=== PATIENT | male | born 1975 | race African-American/Black ===

== ENCOUNTER 2020-08-24 13:41 | Outpatient (CLI) | payer BC, SELFPAY ==
--- NOTE | ~2020-08-24 | XR_ITS ---
EXAMINATION: XR chest 2V EXAM DATE: 08/24/2020 14:06 INDICATION: Cough for one week. Fatigue. TECHNIQUE: Frontal and lateral projections of the chest obtained and reviewed. There is no prior petr dy for comparison. FINDINGS: Some ill-defined right upper lobe opacities which could be acute airspace disease, possible acute infectious process. Right lower lung zone and left lung are clear. No pneumothorax or pleural effusion. There are no osseous abnormalities identified. Cardiomediastinal silhouette is normal. IMPRESSION: Probable small amount of right upper lobe acute airspace disease. I discussed this case with RICK Mendez at 08/24/2020 14:18 CDT. Reviewed, dictated and finalized at location B.
[2020-08-24 14:40] LABS: Basophils Percent Auto 0.5 % (0.2-1.2); Eosinophils Percent Auto 0.5 % (0-4.4); Hematocrit 47.4 % (42.0-52.0); Hemoglobin 16.3 g/dL (14.0-18.0); Immature Granulocyte Absolute 0.01 K/mm3 (0.00-0.031); Immature Granulocyte Percent A 0.2 % (0-0.5); Lymphocytes Absolute Auto 1.78 K/mm3 (0.9-3.2); Lymphocytes Percent Auto 29.7 % (18.3-44.2); Mean Corpuscular HGB Conc 34.4 g/dl (32-36); Mean Corpuscular Hemoglobin 29.9 pg (26-34); Mean Corpuscular Volume 86.8 fl (80-100); Mean Platelet Volume 10.2 fl (7.4-10.4); Monocytes Absolute Auto 0.6 K/mm3 (0.1-0.6); Monocytes Percent Auto 9.5 % (2.6-8.5); Neutrophils Absolute Auto 3.6 K/mm3 (1.3-6.7); Neutrophils Percent Auto 59.6 % (45.5-73.1); Platelet Count Result 209 k/mm3 (150-375); Red Blood Count 5.46 M/mm3 (4.6-6.20)
[2020-08-24 14:51] LABS: Anion Gap 9 mmol/L (8-16); Blood Urea Nitrogen 9 mg/dL (9-20); Calcium 9.7 mg/dL (8.4-10.2); Carbon Dioxide 28 mmol/L (22-30); Chloride 101 mmol/L (98-107); Estimated Glomerular Filt Rate > 60; Glucose 119 mg/dL (75-110); Sodium 138 mmol/L (137-145)
== END 2020-08-24 13:42 | disposition home or self-care (01) ==
LOC: ANHIMG 13:47
PROVIDERS: PCP Family Medicine; Visit Provider Nurse Practitioner Family
DX: R53.83 Other fatigue (principal); R05 Cough
CPT/HCPCS: 36415; 71046; 80048; 85025

== ENCOUNTER 2023-10-14 02:41 | Day surgery (SDC) | payer BC, SELFPAY ==
[2023-10-07 13:08] VITALS: BMI 27.0
--- NOTE | 2023-10-13 09:27 | SUR.PREOP ---
Patient called regarding upcoming procedure. Reviewed preop instructions, appointment times, and procedure prep.
[2023-10-14 12:42] VITALS: BP 121/89; PULSE 67; RESP 18; TEMP 36.2; O2SAT 100; BMI 28.7
[2023-10-14] MEDS: LACTATED RINGERS 1,000 ML 150 ML IV CONT (12:55)
--- NOTE | 2023-10-14 12:59 | WPDANESEPPF ---
Anes - Initial Pre Proc Eval Procedure: Operation Date: 10/14/23 14:00 Proposed Procedures p Screening Colonoscopy - Ron Ludwig MD Date/Time: 10/14/23 12:59 Surgeon: Ron Ludwig MD Pre Op Diagnosis: neoplasm screening Patient Data Age: 48 Gender: M Height: 1.88 m Weight: 101.4 kg Last Vital Signs Temp 97.2 F L 10/14/23 12:42 Pulse 67 10/14/23 12:42 Resp 18 10/14/23 12:42 BP 121/89 10/14/23 12:42 Pulse Ox 100 10/14/23 12:42 O2 Del Method Room Air 10/14/23 12:42 Allergies Allergy/AdvReac Type Severity Reaction Status Date / Time No Known Allergies Allergy Verified 10/14/23 12:41 Home Medications Medication Instructions Recorded Confirmed Type amlodipine 5 mg tablet 5 mg PO QAM #90 tabs 08/11/23 10/14/23 Rx hydrochlorothiazide 12.5 mg tablet 12.5 mg PO DAILY #90 tabs 08/11/23 10/14/23 Rx metoprolol succinate 50 mg 50 mg PO QAM #90 tabs 08/11/23 10/14/23 Rx tablet,extended release 24 hr Patient hx anesthesia problems: none Family hx anesthesia problems: none Results Review: All pre-operative results and documents have been reviewed as part of the pre-operative evaluation. COUNT INCLUDES THE [facility] Past Medical History Medical History Adult BMI 27.0-27.9 kg/sq m Hypertension, essential, benign Overweight with body mass index (BMI) of 28 to 28.9 in adult Right ankle injury Stress due to illness of family member Social History Social History Years smoked: 30 Smoking status: Light tobacco smoker Tobacco type: cigarettes Alcohol intake: current Drinks per week: 7 Alcohol use details: BEERS Substance use: never Substance use type: does not use Living arrangements: with family Spiritual care concerns: No Anes - Eval Final PreProcedure Day of Procedure 10/14/23 12:59 Patient weight: normal Heart: regular rate and rhythm Lungs: clear to auscultation Airway: Mallampati scale class II Neurological: alert and oriented Last oral intake: >/= 8 hours ASA classification: II Emergent: no Anesthetic plan: proceed Anesthesia type and monitoring: general GIVS and standard monitoring Results Review: All pre-operative results and documents have been reviewed as part of the pre-operative evaluation. Informed Consent: The patient's anesthetic plan and its attendant risks and benefits were discussed with the patient/family/POA. Questions were solicited and answers provided to the satisfaction of the patient/family/POA.
--- NOTE | 2023-10-14 13:26 | PM.HPGS ---
History of Present Illness History of Present Illness Consent: Risks, benefits, and alternatives have been discussed and questions answered. Patient agrees to proceed with procedure. Chief complaint: neoplasm screening Narrative: Kristen Singh is a 48 year old male here for first screening colonoscopy Review of Systems Constitutional: Constitutional: Denies headache(s) and Denies weakness Eyes: Eyes: Denies blurry vision ENT: Reports Normal hearing present, Denies headache(s) and Denies neck pain Cardiovascular: Cardiovascular: Denies chest pain and Denies dyspnea Respiratory: Respiratory: Denies dyspnea Gastrointestinal: Gastrointestinal: Reports no additional gastrointestinal complaints Genitourinary: Genitourinary: Denies dysuria Musculoskeletal: Musculoskeletal: Denies neck pain Integumentary/Breasts: Skin/Breast: Denies dry skin Neurologic: Reports Normal hearing present, Denies headache(s) and Denies weakness Psychiatric: Psychiatric: Denies anxiety Endocrine: Endocrine: Denies change in body appearance Hematologic/Lymphatic: Hematologic/Lymphatic: Denies easy bleeding Allergic/Immunologic: Allergic/Immunologic: Denies urticaria PMFSH Past Medical History Medical History Adult BMI 27.0-27.9 kg/sq m Hypertension, essential, benign Overweight with body mass index (BMI) of 28 to 28.9 in adult Right ankle injury Stress due to illness of family member Social History Social History Years smoked: 30 Smoking status: Light tobacco smoker Tobacco type: cigarettes Alcohol intake: current Drinks per week: 7 Alcohol use details: BEERS Substance use: never Substance use type: does not use Living arrangements: with family Spiritual care concerns: No Meds Home Medications and Allergies Home Medications Medication Instructions Recorded Confirmed Type amlodipine 5 mg tablet 5 mg PO QAM #90 tabs 08/11/23 10/14/23 Rx hydrochlorothiazide 12.5 mg tablet 12.5 mg PO DAILY #90 tabs 08/11/23 10/14/23 Rx metoprolol succinate 50 mg 50 mg PO QAM #90 tabs 08/11/23 10/14/23 Rx tablet,extended release 24 hr Allergies Allergy/AdvReac Type Severity Reaction Status Date / Time No Known Allergies Allergy Verified 10/14/23 12:41 Vital Signs Vital Signs - 24 hr 10/14/23 12:42 Temperature 97.2 F L Pulse Rate 67 Respiratory Rate 18 Blood Pressure 121/89 Pulse Oximetry 100 Oxygen Delivery Room Air Exam Const: General: comfortable and no acute distress HENMT: Face/Nose/Sinus: Normal nares present Eyes: General: appearance normal, both eyes and all related structures Neck: Neck: no JVD Resp: Auscultation: clear to auscultation bilaterally Cardio: Rate: regular rate Rhythm: regular rhythm GI: Inspection: non-distended GI Palp: Yes Soft to palpation Skin: General skin exam: normal color Neuro: General: gait normal Speech: normal speech Extrem: General: normal to inspection Psych: Mental Status: mental status grossly normal Assessment and Plan Assessment and plan (1) Screening for malignant neoplasm of colon: Code(s): Z12.11 - Encounter for screening for malignant neoplasm of colon Status: Acute Assessment and Plan: colonoscopy
[2023-10-14 13:55] VITALS: BP 91/49; PULSE 64; RESP 12; O2SAT 100
[2023-10-14 14:05] VITALS: BP 117/66; PULSE 66; RESP 22; O2SAT 100
[2023-10-14 14:15] VITALS: BP 140/96; PULSE 69; RESP 21; O2SAT 100
== END 2023-10-14 14:30 | disposition home or self-care (01) ==
PROVIDERS: PCP Family Medicine; Visit Provider Internal Medicine Gastroenterology
PROC: 0DJD8ZZ Inspection of Lower Intestinal Tract, Via Natural or Artificial Opening Endoscopic (ICD-10-PCS; CPT 45378; principal; 2023-10-14 14:00)
DX: Z12.31 Encounter for screening mammogram for malignant neoplasm of breast (principal); K57.30 Diverticulosis of large intestine without perforation or abscess without bleeding; D12.0 Benign neoplasm of cecum; D12.3 Benign neoplasm of transverse colon; D12.4 Benign neoplasm of descending colon; I10 Essential (primary) hypertension; F17.210 Nicotine dependence, cigarettes, uncomplicated
CPT/HCPCS: 45380; 45385; 88305; J7120